=== PATIENT | male | born 1980 | race Caucasian/White ===

== ENCOUNTER 2018-11-26 07:54 | Emergency (ER) | payer BC, SELFPAY ==
[2018-11-26 08:02] VITALS: BP 125/81; PULSE 106; RESP 18; TEMP 36.4; O2SAT 96
--- NOTE | 2018-11-26 08:08 | W.ED.GENAD ---
Discharge Plan Disposition Patient Disposition: HOME Condition: Good Discharge Details Chief Complaint: GenMedical Clinical Impression: URI (upper respiratory infection), Mild reactive airways disease Primary Care Provider: Keanu Huang ED Provider: Grover Lane Home Meds and New Rx's Prescriptions: New prednisone 50 MG tablet 50 mg PO DAILY Qty: 5 RF: 0 albuterol sulfate 90 mcg/actuation HFA aerosol inhaler 2 puff IH Q6H PRN (Reason: shortness of breath or wheezing) Qty: 8 RF: 0 No Action allopurinol 100 mg tablet 100 mg PO DAILY Qty: 90 RF: 3 indomethacin 50 mg capsule 50 mg PO TID Qty: 30 RF: 1 sertraline 100 mg tablet 100 mg PO DAILY Qty: 90 RF: 3 nicotine [Nicoderm CQ] 21 mg/24 hr patch 24 hour 1 patch TD Q24H Qty: 14 RF: 0 nicotine [Nicoderm CQ] 14 mg/24 hr patch 24 hour 1 patch TD DAILY Qty: 14 RF: 0 nicotine [Nicoderm CQ] 7 mg/24 hr patch 24 hour 1 patch TD Q24H Qty: 14 RF: 0 nicotine 1 EACH patch 24 hour 14 mg Transdermal DAILY Qty: 14 RF: 0 Nicotine [Nicotine Patch] 1 EACH PATCH.DYSQ 1 ea Transdermal d Qty: 28 RF: 0 ibuprofen 600 mg tablet 600 mg PO Q6H PRN (Reason: Pain) Qty: 40 RF: 0 Discharge Instructions Instructions: Upper Respiratory Infection (ED), Reactive Airways Disease (ED) Additional Instructions: Please take the inhaler and steroids as directed. If you notice any worsening of your symptoms, or any new symptoms such as vomiting, diarrhea, fever, chills, shortness of breath, chest pain, numbness, weakness, or fainting , please return immediately to the emergency department for reevaluation. Please follow up with your primary care provider as soon as possible for reassessment and reevaluation. As always, it was a pleasure participating in your medical care today. Stand Alone Forms: Work Release Referrals: Keanu Huang [Primary Care Provider] - Medical Decision Making This is a 38-year-old male who presents with 4-5 days of cough, congestion, runny nose, aches, myalgias. Vital signs are stable and reassuring, no evidence of hypoxemia, tachypnea, fever, or respiratory distress. Lung sounds demonstrate mild wheezes, the patient does have a tobacco abuse history. No clinical evidence of meningitis or brock pneumonia. And concern for influenza as the patient has not gotten his influenza vaccine. With the patient's mild wheezes we will give a DuoNeb treatment, steroids and Toradol. Will assess for influenza. I feel the patient at this time is most likely suffering from a viral upper respiratory infection. We will hold off on radiographic imaging at this time with no evidence of hypoxemia, tachypnea, or concerning physical exam findings for pneumonia. A 38 5 AM Patient is feeling much better after breathing treatment. Lung sounds are notably improved. Still no evidence of consistent rhonchi or rales. Patient is influenza negative. I do feel that the patient has a mild viral upper respiratory infection causing worsening of his reactive airway disease. We will give albuterol and steroids for home use. I have instructed close follow-up with his PCP, we have also discussed the importance of return if he notices worsening of his symptoms. We discussed signs and symptoms concerning for pneumonia and other red flag I have extensively reviewed the treatment plan and discharge instructions with the patient. I have addressed all patient concerns at this time. The patient was made aware of what symptoms to monitor for that would warrant a return to the emergency department. Discussed the plan with the patient, they demonstrate verbal understanding and agreement with our assessment and plan at this time. HPI General Date/Time Provider Initiated Documentation: 11/26/18 07:57. HPI Narrative: This is a 38-year-old male with a past medical history of gout, tobacco use, who presents today for evaluation of cough, aches, chills, and fever for the last 4-5 days. Symptoms began last Saturday and his symptoms have gradually worsened. He now has a productive cough for the last 2-3 days with green sputum. He does admit to mild shortness of breath with his cough, but he denies any chest pain, pleuritic chest pain, arm neck or shoulder pain. He admits to generalized aches and pains throughout and feelings of malaise. He continues to smoke. He denies any hemoptysis. He does admit to very mild headache. The patient denies any headache red flags of worst headache of life, thunderclap headache, neck pain, fever, chills, concerning family history of polycystic kidney disease, Marfan syndrome, Renard-Danlos syndrome, abdominal aortic aneurysm, aortic dissection, or intracranial aneurysm. Denies PE risk factors such as recent long car rides, immobilization, recent surgery, prior history of DVT or PE, family history of PE or DVT, morbid obesity, exogenous estrogen, hemoptysis, history of cancer. The patient did not get his flu shot this year. He denies any other complaints at this time. He Related Data Home Medications Medication Instructions Recorded Confirmed nicotine 14 mg TRANSDERMAL DAILY #14 patch 03/26/18 10/24/18 ibuprofen 600 mg tablet 600 mg PO Q6H PRN #40 tab 10/17/18 11/26/18 allopurinol 100 mg tablet 100 mg PO DAILY #90 tab 10/24/18 11/26/18 indomethacin 50 mg capsule 50 mg PO TID #30 cap 10/24/18 10/24/18 nicotine 14 mg/24 hr daily 1 patch TD DAILY #14 each 10/24/18 10/24/18 transdermal patch nicotine 21 mg/24 hr daily 1 patch TD Q24H #14 each 10/24/18 10/24/18 transdermal patch nicotine 7 mg/24 hr daily 1 patch TD Q24H #14 each 10/24/18 10/24/18 transdermal patch sertraline 100 mg tablet 100 mg PO DAILY #90 tab-cap 10/24/18 11/26/18 albuterol sulfate 2 puff IH Q6H PRN #8 gm 11/26/18 prednisone 50 mg PO DAILY #5 tab 11/26/18 Previous Rx's Medication Instructions Recorded nicotine 14 mg TRANSDERMAL DAILY #14 patch 03/26/18 ibuprofen 600 mg tablet 600 mg PO Q6H PRN #40 tab 10/17/18 allopurinol 100 mg tablet 100 mg PO DAILY #90 tab 10/24/18 indomethacin 50 mg capsule 50 mg PO TID #30 cap 10/24/18 nicotine 14 mg/24 hr daily 1 patch TD DAILY #14 each 10/24/18 transdermal patch nicotine 21 mg/24 hr daily 1 patch TD Q24H #14 each 10/24/18 transdermal patch nicotine 7 mg/24 hr daily 1 patch TD Q24H #14 each 10/24/18 transdermal patch sertraline 100 mg tablet 100 mg PO DAILY #90 tab-cap 10/24/18 albuterol sulfate 2 puff IH Q6H PRN #8 gm 11/26/18 prednisone 50 mg PO DAILY #5 tab 11/26/18 Allergies Allergy/AdvReac Type Severity Reaction Status Date / Time poison joseph extract AdvReac Intermediate Skin Rash Unverified 11/26/18 08:11 General Stated Complaint: GenMedical NORMA: 3 Review of Systems Review of Systems All systems reviewed & are unremarkable except as noted in HPI and below PFSH Social History Smoking and Tabacco status: Current every day Pasive smoking exposure: Yes Exam Narrative Exam Narrative: 1.Const: Well-nourished, Well-developed, appearing stated age 2.Eyes: PERRL, no conjunctival injection, and symmetrical lids. 3.ENT: Atraumatic external nose and ears. Moist MM. Neck: Symmetric, trachea midline, No thyromegaly. Patient demonstrates good movement of cervical neck. There is no nuchal rigidity, no nuchal tenderness. Patient is able to flex the neck without any difficulty or significant pain. Negative Kernig's and Brudzinski sign. No significant erythema in the posterior oropharynx. 4.CVS: +S1/S2, No murmurs or gallops. Peripheral pulses 2+ and equal in all extremities. Brisk capillary refill in all extremities. 5.RESP: Unlabored respiratory effort. Reduced breath sounds throughout, mild wheezes in the bases. No rales or rhonchi. 6.GI: Soft, Nontender/Nondistended, No hepatosplenomegaly. No guarding or rebound. 7.MSK: Normocephalic/Atraumatic, Extremities w/o deformity or ttp No cyanosis or clubbing, Normal movement of all extremities 8.Skin: Warm, Dry. No rashes or lesions. 9.Neuro: humanities instructor II-XII grossly intact. Sensation grossly intact, no focal neurologic deficits. 10.Psych: (AAO) x3. Appropriate mood and affect Course Vital Signs Temperature 36.4 C L 11/26/18 08:02 Pulse 106 H 11/26/18 08:02 Respiratory Rate 18 11/26/18 08:02 Blood Pressure 125/81 11/26/18 08:02 Pulse Oximetry 96 11/26/18 08:02 Temperature 36.4 C L 11/26/18 08:02 Temperature Source Temporal Artery Scan 11/26/18 08:02 Pulse 106 H 11/26/18 08:02 Respiratory Rate 18 11/26/18 08:02 Blood Pressure 125/81 11/26/18 08:02 Blood Pressure Position Sitting 11/26/18 08:02 Pulse Oximetry 96 11/26/18 08:02 Oxygen Delivery Method Room Air 11/26/18 08:02 Oxygen Flow Rate 0 11/26/18 08:02 Pain Level 8 11/26/18 08:02 Lab/Test Results Lab/Test Results: 11/26/18 08:04 Nasopharynx Influenza Types A,B Antigen - Pending
[2018-11-26 08:15] VITALS: PULSE 106; RESP 18; RESP 4; O2SAT 96
[2018-11-26] MEDS: Albuterol/Ipratropium 3 ML UPD VIAL UPD (08:15)
[2018-11-26] MEDS: predniSONE 20 MG TAB 60 MG PO (08:15)
[2018-11-26] MEDS: Ketorolac 30 MG/ML VIAL IM (08:16)
[2018-11-26 08:21] VITALS: RESP 18
[2018-11-26 08:46] VITALS: BP 128/79; PULSE 104; RESP 18; O2SAT 95
== END 2018-11-26 08:50 | disposition home or self-care (01) ==
PROVIDERS: Emergency Provider Student in an Organized Health Care Education/Training Program; PCP Family Medicine
DX: J06.9 Acute upper respiratory infection, unspecified (principal); J45.909 Unspecified asthma, uncomplicated; F17.210 Nicotine dependence, cigarettes, uncomplicated
CPT/HCPCS: 87449; 94640; 96372; 99284; J1885; J7512; J7620

== ENCOUNTER 2019-03-05 14:07 | Emergency (ER) | payer OTHER, SELFPAY ==
[2019-03-05 14:09] VITALS: BP 155/99; PULSE 104; RESP 18; TEMP 36.7; O2SAT 97
--- NOTE | 2019-03-05 14:25 | W.ED.GENAD ---
Discharge Plan Disposition Patient Disposition: HOME Condition: Improving Discharge Details Chief Complaint: GenMedical Clinical Impression: Infected insect bite Primary Care Provider: Keanu Huang ED Provider: Singh Woodard Home Meds and New Rx's Prescriptions: New doxycycline hyclate 100 mg capsule 100 mg PO BID 10 Days Qty: 20 RF: 0 Continued sertraline 100 mg tablet 100 mg PO DAILY Qty: 90 RF: 3 nicotine [Nicoderm CQ] 21 mg/24 hr patch 24 hour 1 patch TD Q24H Qty: 14 RF: 0 nicotine [Nicoderm CQ] 14 mg/24 hr patch 24 hour 1 patch TD DAILY Qty: 14 RF: 0 nicotine [Nicoderm CQ] 7 mg/24 hr patch 24 hour 1 patch TD Q24H Qty: 14 RF: 0 nicotine 1 EACH patch 24 hour 14 mg Transdermal DAILY Qty: 14 RF: 0 Nicotine [Nicotine Patch] 1 EACH PATCH.DYSQ 1 ea Transdermal d Qty: 28 RF: 0 ibuprofen 600 mg tablet 600 mg PO Q6H PRN (Reason: Pain) Qty: 40 RF: 0 albuterol sulfate 90 mcg/actuation HFA aerosol inhaler 2 puff IH Q6H PRN (Reason: shortness of breath or wheezing) Qty: 8 RF: 0 allopurinol 100 mg Tablet 100 mg PO BID RF: 0 Discharge Instructions Additional Instructions: Please apply moist heat or warm compress to area to increase speed of healing. May use Tylenol if needed for pain. Take doxycycline as prescribed for its entire course. Return if you have increased swelling, develop drainage or a fever, or any other acute concerns. Medical Decision Making 38-year-old male was working in [employer] yesterday and removed 3 tick ticks during the day. Last night he noticed left anterior thigh area of insect bite without persistent tach. Today with her surrounding erythema. Exam is consistent with a mild cellulitis surrounding central area of probable envenomation. As he had tick exposure, must consider exposure to Lyme disease and therefore we will place him on a course of doxycycline. He understands that he will have increased sensitivity to sun exposure, he understands return precautions. HPI General Mode of arrival: ambulatory. Date/Time Provider Initiated Documentation: 03/05/19 14:15. Limitations to Documentation: no limitations. Information obtained by: patient. History of Present Illness 38 year old M presents to the emergency department with the chief complaint of Left thigh insect bite, question tick, described as mild, Quality is described as dull and constant, and is localized to the left and lower extremity. Patient reports no radiation. Patient started experiencing this day(s) and it has been constant. No relieving factors improve symptom(s), No exacerbating factors reported . Patient notes no other symptoms.; denies fever/chills. Patient did receive the following treatments prior to arrival, none Related Data Home Medications Medication Instructions Recorded Confirmed nicotine 14 mg TRANSDERMAL DAILY #14 patch 03/26/18 03/05/19 ibuprofen 600 mg tablet 600 mg PO Q6H PRN #40 tab 10/17/18 03/05/19 nicotine 14 mg/24 hr daily 1 patch TD DAILY #14 each 10/24/18 03/05/19 transdermal patch nicotine 21 mg/24 hr daily 1 patch TD Q24H #14 each 10/24/18 03/05/19 transdermal patch nicotine 7 mg/24 hr daily 1 patch TD Q24H #14 each 10/24/18 03/05/19 transdermal patch sertraline 100 mg tablet 100 mg PO DAILY #90 tab-cap 10/24/18 03/05/19 albuterol sulfate 2 puff IH Q6H PRN #8 gm 11/26/18 03/05/19 allopurinol 100 mg PO BID 03/05/19 03/05/19 doxycycline hyclate 100 mg PO BID 10 Days #20 cap 03/05/19 Previous Rx's Medication Instructions Recorded nicotine 14 mg TRANSDERMAL DAILY #14 patch 03/26/18 ibuprofen 600 mg tablet 600 mg PO Q6H PRN #40 tab 10/17/18 nicotine 14 mg/24 hr daily 1 patch TD DAILY #14 each 10/24/18 transdermal patch nicotine 21 mg/24 hr daily 1 patch TD Q24H #14 each 10/24/18 transdermal patch nicotine 7 mg/24 hr daily 1 patch TD Q24H #14 each 10/24/18 transdermal patch sertraline 100 mg tablet 100 mg PO DAILY #90 tab-cap 10/24/18 albuterol sulfate 2 puff IH Q6H PRN #8 gm 11/26/18 doxycycline hyclate 100 mg PO BID 10 Days #20 cap 03/05/19 Allergies Allergy/AdvReac Type Severity Reaction Status Date / Time poison joseph extract AdvReac Intermediate Skin Rash Unverified 03/05/19 14:12 General Stated Complaint: GenMedical NORMA: 4 Review of Systems Review of Systems 6 systems reviewed and otherwise negative [facility] Social History Smoking/Tobacco Use Status: Current every day Drug use: Never Do you feel safe in your relationship?: Yes Exam Narrative Exam Narrative: GEN: awake, alert, oriented 3. Pleasant, well groomed, interactive. HEAD: Normocephalic, atraumatic EXT: Full ROM, no edema, left anterior lateral thigh with approximately 5 cm diameter raised erythematous area with central area of scab Neuro: Grossly normal neurologic exam, conversant, interactive. Psych: Speech fluent, thoughts congruent, affect normal Course Vital Signs Temperature 36.7 C 03/05/19 14:09 Pulse 104 H 03/05/19 14:09 Respiratory Rate 18 03/05/19 14:09 Blood Pressure 155/99 H 03/05/19 14:09 Pulse Oximetry 97 03/05/19 14:09 Temperature 36.7 C 03/05/19 14:09 Temperature Source Skin 03/05/19 14:09 Pulse 104 H 03/05/19 14:09 Respiratory Rate 18 03/05/19 14:09 Blood Pressure 155/99 H 03/05/19 14:09 Pulse Oximetry 97 03/05/19 14:09 Oxygen Delivery Method Room Air 03/05/19 14:09 Oxygen Flow Rate 0 03/05/19 14:09
--- NOTE | 2019-03-05 14:29 | ED.GENADUL_ITS ---
Discharge Plan Disposition Patient Disposition: HOME Condition: Improving Discharge Details Chief Complaint: GenMedical Clinical Impression: Infected insect bite Primary Care Provider: Keanu Huang ED Provider: Singh Woodard Home Meds and New Rx's Prescriptions: New doxycycline hyclate 100 mg capsule 100 mg PO BID 10 Days Qty: 20 RF: 0 Continued sertraline 100 mg tablet 100 mg PO DAILY Qty: 90 RF: 3 nicotine [Nicoderm CQ] 21 mg/24 hr patch 24 hour 1 patch TD Q24H Qty: 14 RF: 0 nicotine [Nicoderm CQ] 14 mg/24 hr patch 24 hour 1 patch TD DAILY Qty: 14 RF: 0 nicotine [Nicoderm CQ] 7 mg/24 hr patch 24 hour 1 patch TD Q24H Qty: 14 RF: 0 nicotine 1 EACH patch 24 hour 14 mg Transdermal DAILY Qty: 14 RF: 0 Nicotine [Nicotine Patch] 1 EACH PATCH.DYSQ 1 ea Transdermal d Qty: 28 RF: 0 ibuprofen 600 mg tablet 600 mg PO Q6H PRN (Reason: Pain) Qty: 40 RF: 0 albuterol sulfate 90 mcg/actuation HFA aerosol inhaler 2 puff IH Q6H PRN (Reason: shortness of breath or wheezing) Qty: 8 RF: 0 allopurinol 100 mg Tablet 100 mg PO BID RF: 0 Discharge Instructions Additional Instructions: Please apply moist heat or warm compress to area to increase speed of healing. May use Tylenol if needed for pain. Take doxycycline as prescribed for its entire course. Return if you have increased swelling, develop drainage or a fever, or any other acute concerns. Medical Decision Making 38-year-old male was working in [employer] yesterday and removed 3 tick ticks during the day. Last night he noticed left anterior thigh area of insect bite without persistent tach. Today with her surrounding erythema. Exam is consistent with a mild cellulitis surrounding central area of probable envenomation. As he had tick exposure, must consider exposure to Lyme disease and therefore we will place him on a course of doxycycline. He understands that he will have increased sensitivity to sun exposure, he understands return precautions. HPI General Mode of arrival: ambulatory . Date/Time Provider Initiated Documentation: 03/05/19 14:15 . Limitations to Documentation: no limitations . Information obtained by: patient . History of Present Illness 38 year old M presents to the emergency department with the chief complaint of Left thigh insect bite, question tick, described as mild, Quality is described as dull and constant, and is localized to the left and lower extremity. Patient reports no radiation. Patient started experiencing this day(s) and it has been constant. No relieving factors improve symptom(s), No exacerbating factors reported . Patient notes no other symptoms.; denies fever/chills. Patient did receive the following treatments prior to arrival, none Related Data Home Medications Medication Instructions Recorded Confirmed nicotine 14 mg TRANSDERMAL DAILY #14 patch 03/26/18 03/05/19 ibuprofen 600 mg tablet 600 mg PO Q6H PRN #40 tab 10/17/18 03/05/19 nicotine 14 mg/24 hr daily 1 patch TD DAILY #14 each 10/24/18 03/05/19 transdermal patch nicotine 21 mg/24 hr daily 1 patch TD Q24H #14 each 10/24/18 03/05/19 transdermal patch nicotine 7 mg/24 hr daily 1 patch TD Q24H #14 each 10/24/18 03/05/19 transdermal patch sertraline 100 mg tablet 100 mg PO DAILY #90 tab-cap 10/24/18 03/05/19 albuterol sulfate 2 puff IH Q6H PRN #8 gm 11/26/18 03/05/19 allopurinol 100 mg PO BID 03/05/19 03/05/19 doxycycline hyclate 100 mg PO BID 10 Days #20 cap 03/05/19 Previous Rx's Medication Instructions Recorded nicotine 14 mg TRANSDERMAL DAILY #14 patch 03/26/18 ibuprofen 600 mg tablet 600 mg PO Q6H PRN #40 tab 10/17/18 nicotine 14 mg/24 hr daily 1 patch TD DAILY #14 each 10/24/18 transdermal patch nicotine 21 mg/24 hr daily 1 patch TD Q24H #14 each 10/24/18 transdermal patch nicotine 7 mg/24 hr daily 1 patch TD Q24H #14 each 10/24/18 transdermal patch sertraline 100 mg tablet 100 mg PO DAILY #90 tab-cap 10/24/18 albuterol sulfate 2 puff IH Q6H PRN #8 gm 11/26/18 doxycycline hyclate 100 mg PO BID 10 Days #20 cap 03/05/19 Allergies Allergy/AdvReac Type Severity Reaction Status Date / Time poison joseph extract AdvReac Intermediate Skin Rash Unverified 03/05/19 14:12 General Stated Complaint: GenMedical NORMA: 4 Review of Systems Review of Systems 6 systems reviewed and otherwise negative [facility] Social History Smoking/Tobacco Use Status: Current every day Drug use: Never Do you feel safe in your relationship?: Yes Exam Narrative Exam Narrative: GEN: awake, alert, oriented 3. Pleasant, well groomed, interactive. HEAD: Normocephalic, atraumatic EXT: Full ROM, no edema, left anterior lateral thigh with approximately 5 cm diameter raised erythematous area with central area of scab Neuro: Grossly normal neurologic exam, conversant, interactive. Psych: Speech fluent, thoughts congruent, affect normal Course Vital Signs Temperature 36.7 C 03/05/19 14:09 Pulse 104 H 03/05/19 14:09 Respiratory Rate 18 03/05/19 14:09 Blood Pressure 155/99 H 03/05/19 14:09 Pulse Oximetry 97 03/05/19 14:09 Temperature 36.7 C 03/05/19 14:09 Temperature Source Skin 03/05/19 14:09 Pulse 104 H 03/05/19 14:09 Respiratory Rate 18 03/05/19 14:09 Blood Pressure 155/99 H 03/05/19 14:09 Pulse Oximetry 97 03/05/19 14:09 Oxygen Delivery Method Room Air 03/05/19 14:09 Oxygen Flow Rate 0 03/05/19 14:09
== END 2019-03-05 14:40 | disposition home or self-care (01) ==
PROVIDERS: Emergency Provider Emergency Medicine; PCP Family Medicine
DX: S70.362A Insect bite (nonvenomous), left thigh, initial encounter (principal); L03.116 Cellulitis of left lower limb; W57.XXXA Bitten or stung by nonvenomous insect and other nonvenomous arthropods, initial encounter; F17.210 Nicotine dependence, cigarettes, uncomplicated
CPT/HCPCS: 99283

== ENCOUNTER 2020-03-03 03:38 | Outpatient (CLI) | payer BC, SELFPAY ==
[2020-03-03 13:52] LABS: Calculated LDL 129 mg/dL (<100); Cholesterol 217 mg/dL (<200); Glucose 145 mg/dL (74-106); HDL Cholesterol 34 mg/dL (40-60); Triglyceride 271 mg/dL (<150)
[2020-03-03 14:05] LABS: Uric Acid 8.5 mg/dL (3.5-7.2)
== END 2020-03-03 03:58 ==
PROVIDERS: PCP Family Medicine; Visit Provider Family Medicine
DX: E78.5 Hyperlipidemia, unspecified (principal); R73.9 Hyperglycemia, unspecified; M10.9 Gout, unspecified
CPT/HCPCS: 36415; 80061; 82947; 84550

== ENCOUNTER 2021-07-24 15:51 | Emergency (ER) | payer SELFPAY ==
[2021-07-24 15:56] VITALS: BP 153/102; PULSE 110; RESP 20; O2SAT 98
--- NOTE | 2021-07-24 16:00 | DI.RAD_ITS ---
Exam(s) XR ANKLE RT COMPLETE EXAM: XR ANKLE RT COMPLETE CLINICAL HISTORY: fall. TECHNIQUE: 2D digital imaging was performed of the right ankle. Three images were obtained. AP, la teral and oblique views were obtained. COMPARISON: No exams were available for comparison FINDINGS: BONES: No acute fracture of the right ankle is present. No bony destructive lesion is seen. Fracture s of the right foot are described on the x-ray of the right foot from the same day. JOINTS: The ankle mortise is normally aligned. SOFT TISSUE: Normal. IMPRESSION: 1. Unremarkable radiographs of the right ankle. 2. Please review the report for the same day x-ray of the right foot for complete details of the [place] injury. DATA REPOSITORY: RADIATION DOSE DELIVERED:
--- NOTE | 2021-07-24 16:00 | DI.RAD_ITS ---
Exam(s) XR KNEE RT 3V AP,LAT,MANOLO EXAM: XR KNEE RT 3V AP,LAT,MANOLO CLINICAL HISTORY: proximal fibula pain. TECHNIQUE: 2D digital imaging was performed of the right knee. Three views obtained. AP, AP tunnel and lateral views were obtained. COMPARISON: CR RIGHT KNEE 3 VIEWS from 06/15/2017 FINDINGS: BONES: No acute fracture is present. No bony destructive lesion is seen. JOINTS: The knee is normally aligned. No joint effusion is seen. SOFT TISSUE: Normal. IMPRESSION: Unremarkable radiographs of the right knee. DATA REPOSITORY: RADIATION DOSE DELIVERED:
--- NOTE | 2021-07-24 16:00 | DI.RAD_ITS ---
Exam(s) XR FOOT RT COMPLETE EXAM: XR FOOT RT COMPLETE CLINICAL HISTORY: fall. TECHNIQUE: 2D digital imaging was performed of the right foot. Three images were obtained. AP, obl ique and lateral views were obtained. COMPARISON: No exams were available for comparison FINDINGS: BONES: There is an acute mildly displaced and impacted fracture involving the proximal metaphysis of the right 4th metacarpal. There are tiny osseous densities interposed between the lateral cuneiform and the cuboid suggestive of acute fracture fragments. The site of origin is indeterminate. There a lso appears to be a deformity at the base of the 2nd metatarsal suspicious for fracture. There is wi dening between the bases of the 1st and 2nd metatarsal suspicious for Lisfranc injury. No bony destr uctive lesion is seen. JOINTS: No dislocation present. SOFT TISSUE: There is soft tissue swelling of the foot. IMPRESSION: 1. Mildly displaced and impacted fracture involving the proximal metaphysis of the right 4th metacarp al. 2. Osseous fragments adjacent to the lateral cuneiform suspicious for acute fracture fragment. 3. Widening between the bases of the 1st and 2nd metatarsal suspicious for Lisfranc injury. 4. Soft tissue swelling of the foot. 5. Question of a fracture involving the base of the 2nd metatarsal. DATA REPOSITORY: RADIATION DOSE DELIVERED:
--- NOTE | 2021-07-24 16:45 | DI.CT_ITS ---
Exam(s) CT LOWER EXTREMITY RT WO EXAM: CT LOWER EXTREMITY RT WO CLINICAL HISTORY: further evaluation of Lisfranc. TECHNIQUE: Imaging Protocol: Axial computed tomography images with coronal and sagittal reformatted images were created and reviewed. COMPARISON: CR,XR XR FOOT RT COMPLETE from 07/24/2021 CR,XR XR FOOT RT COMPLETE from 07/24/2021 FINDINGS: Bones: There is a small acute mildly comminuted fracture at the lateral aspect of the cuboid. There is a mildly comminuted fracture involving the lateral aspect of the lateral cuneiform. There are fe w tiny densities adjacent to the plantar lateral aspect of the middle cuneiform suspicious for small avulsed fracture fragments. There is a tiny osseous density at the anterior and lateral aspect of me dial cuneiform which may represent a small avulsed fracture fragment. There is a comminuted mildly d isplaced fracture involving the base of the 2nd metatarsal. There is widening of the distance betwee n the 1st and 2nd metatarsals consistent with a Lisfranc injury. There is a displaced fracture invol ving the base of the 3rd metatarsal. There is a comminuted mildly displaced fracture involving the b ase of the 4th metatarsal. No cellulitic or osteomyelitic changes are identified. There is no evide nce of joint space narrowing or cystic degeneration seen. No lytic or sclerotic lesions are identifie d. Soft Tissues: There is soft tissue swelling of the forefoot. IMPRESSION: 1. Findings consistent with a Lisfranc fracture dislocation. 2. Fractures involving the bases of the 2nd, 3rd and 4th metatarsals. 3. Findings suspicious for fractures involving the middle and lateral cuneiform is in the cuboid. 4. Soft tissue edema in the foot. RADIATION DOSE DELIVERED: 293.5mGy.cm Total DLP 293.5mGy.cm Total DLP DATA REPOSITORY: All CT scans at this facility are submitted to the National Radiology Data Registry (NRDR) Dose Index Registry (DIR) with the [employer] (ACR). RADIATION OPTIMIZATION: All CT scans at this facility use at least one of these dose optimization te chniques: automated exposure control; mA and/or kV adjustment per patient size (includes targeted exa ms where dose is matched to clinical indication); or iterative reconstruction.
[2021-07-24] MEDS: Ibuprofen 600 MG TAB PO (16:46)
[2021-07-24] MEDS: Acetaminophen 500 MG TAB 1000 MG PO (16:46)
--- NOTE | 2021-07-24 16:57 | W.ED.GENAD ---
Discharge Plan Disposition Patient Disposition: HOME Condition: Stable Discharge Details Clinical Impression: Lisfranc fracture, Multiple fractures of foot Primary Care Provider: Keanu Huang ED Provider: Trudy Silva Home Meds and New Rx's Prescriptions: Continued allopurinol 100 mg tablet 200 mg PO DAILY PRN (Reason: gout prophylaxis) Qty: 60 RF: 5 sertraline 100 mg tablet 100 mg PO DAILY Qty: 90 RF: 3 ibuprofen 600 mg tablet 600 mg PO Q6H PRN (Reason: Pain) Qty: 60 RF: 1 indomethacin 50 mg capsule 50 mg PO TID PRN (Reason: gout) Qty: 30 RF: 1 Discharge Instructions Instructions: Foot Fracture in Adults (ED) Additional Instructions: Your imaging is concerning for fractures to 3 bones in your foot. This injury is called a Lisfranc fracture. This will likely need surgical intervention. Please call orthopedics tomorrow at [facility] to arrange for follow-up with retail operations specialist. [phone]. Please leave splint in place until reevaluated by orthopedics. Please encourage rest, ice, elevation. You may use Tylenol and ibuprofen as needed for discomfort. Please remain nonweightbearing and use crutches to help get around. If develop any new or worsening symptoms please seek care urgently once again. Referrals: Kip Carranza [ NON-[facility] STAFF PHYSICIAN] - Discharge Data Discharge Date/Time-TO BE ENTERED AT DEPARTURE: 07/24/21 19:20 Medical Decision Making Patient is a pleasant 41-year-old gentleman presented with chief complaint of right foot and ankle pain after fall off a ladder. He reports that he directly 10 feet up on a ladder when the ladder kicked out and he rode the ladder down to the ground. His body was on top of the ladder but his right foot got caught under the ladder. He denies drinking. No loss of conscious. Denies pain in his neck, back. No incontinence. He denies any abdominal discomfort. He did initially was able to ambulate with secondary to pain in the foot and ankle had has been nonweightbearing when coming in to the hospital today. On exam, patient appears nontoxic. He appears comfortable. He is swelling to the dorsal aspect of the right foot. Pain over the midfoot as well as the metatarsal. Pain over the lateral malleolus. No pain medially. Achilles is intact and nontender. No pain over the calcaneus. Patient is able to move all of his toes. States that he does feel tingly. Intact capillary refill, 2+ distal pulses. He does have some discomfort over the proximal fibula. No pain on palpation of the patella knee joint. Good range of motion of the knee. No effusion. Plan to image the proximal fibula, ankle and foot. He does have midfoot tenderness, will obtain a weighted view. Will give Tylenol and ibuprofen to help with pain. Exam of the patient head, chest, pelvis, back were all unremarkable. Full range of motion of the spine with no midline tenderness or evidence to suggest any type of compression fracture. He is known saddle paresthesias. Good strength in all extremities. No break in the skin. I was contacted by orthopedic surgeon who looked at the initial x-rays. He is concerned for a Lisfranc fracture. Advised that patient be placed in a bulky Goldman dressing, nonweightbearing and follow-up with retail operations specialist. Patient is agreeable to referral to [facility]. He also asked that I obtain a CT that she will do prior to splinting and discharging patient. 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 On AP view, there is lateral positioning of the 2nd metatarsal in reference to the intermediate cuneiform bone. The talotibial and talofibular joints appear unremarkable. There is very minor hypertrophic change seen along the tip of the medial malleolus. Soft tissues: Soft tissue edema noted within the forefoot. IMPRESSION: 1. No acute osseous injury seen within the ankle joint. 2. Fracture of the 4th metatarsal at the junction of the base and shaft. Recommend orthopedic referral. 3. Lateral subluxation of the 2nd metatarsal in relationship to the intermediate cuneiform consistent with LisFranc injury. Recommend CT foot to best evaluate. 4. Soft tissue edema within the forefoot. FINDINGS: Bones/joints: No acute osseous injury. There is very slight, if any, narrowing within the medial compartment of the right tibiofemoral joint with prominence of the right medial tibial plateau spine. The right patellofemoral joint is grossly normal in appearance. Soft tissues: No soft tissue edema or suprapatellar effusion seen. IMPRESSION: 1. No acute osseous injury. If trauma was very recent and should patient's symptoms persist, recommend follow-up imaging in 7-10 days to evaluate for possible occult fracture. 2. Minor degenerative change to the right tibiofemoral joint. Discussed these findings with the patient. Discussed application of bulky Goldman splint. I encouraged rest, ice, elevation. Tylenol and/or ibuprofen as needed for discomfort. Will give crutches to help with ambulation this patient is to remain nonweightbearing. Referral for specialist to [facility] was s probably ent. I did advise that he call tomorrow to schedule follow-up appointment. Bulky Goldman applied by myself. Sensation, capillary refill and mobility intact after application of the splint. Patient I discussed return precautions. We discussed activities that he should avoid. All his questions and concerns were addressed and he is agreement this plan. Patient can be reached at [phone] HPI General Mode of arrival: wheelchair. Date/Time Provider Initiated Documentation: 07/24/21 15:54. Limitations to Documentation: no limitations. Information obtained by: patient and RN notes reviewed. History of Present Illness 41 year old M presents to the emergency department with the chief complaint of right foot/ankle pain, described as severe, with intensity rated at 9. Quality is described as aching, and is localized to the right and lower extremity. Patient reports no radiation. Patient started experiencing this minute(s) and it has been constant. Immobilization improves symptom(s), Movement worsens symptoms . Patient notes no other symptoms.. Patient did receive the following treatments prior to arrival, none Related Data Home Medications Medication Instructions Recorded Confirmed allopurinol 100 mg tablet 200 mg PO DAILY PRN #60 tab 01/18/21 07/24/21 ibuprofen 600 mg tablet 600 mg PO Q6H PRN #60 tab 01/18/21 07/24/21 indomethacin 50 mg capsule 50 mg PO TID PRN #30 cap 01/18/21 07/24/21 sertraline 100 mg tablet 100 mg PO DAILY #90 tab-cap 01/18/21 07/24/21 Previous Rx's Medication Instructions Recorded allopurinol 100 mg tablet 200 mg PO DAILY PRN #60 tab 01/18/21 ibuprofen 600 mg tablet 600 mg PO Q6H PRN #60 tab 01/18/21 indomethacin 50 mg capsule 50 mg PO TID PRN #30 cap 01/18/21 sertraline 100 mg tablet 100 mg PO DAILY #90 tab-cap 01/18/21 Allergies Allergy/AdvReac Type Severity Reaction Status Date / Time poison joseph extract AdvReac Intermediate Skin Rash Verified 01/18/21 08:20 General Stated Complaint: Orthopedic NORMA: 3 Review of Systems Constitutional Constitutional: Reports as per HPI, Denies chills, Denies fever(s), Denies headache(s) and Denies weakness ENT Ears, Nose, Mouth, and Throat: Denies headache(s) and Denies neck pain Cardiovascular Cardiovascular: Reports as per HPI Respiratory Respiratory: Reports as per HPI, Denies cough and Denies pain on inspiration Gastrointestinal Gastrointestinal: Denies abdominal pain, Denies nausea and Denies vomiting Musculoskeletal Musculoskeletal: Reports as per HPI, Denies back pain, Denies deformity, Denies neck pain and Denies tingling Integumentary/Breasts Skin/Breast: Reports as per HPI, Denies rash and Denies wounds Neurologic Neurologic: Reports as per HPI, Denies headache(s), Denies tingling, Denies paresthesias and Denies weakness [facility] Medical History (Updated 07/24/21 @ 18:13 by LARRY Ward) Glucose intolerance Gout Overweight Family History (Updated 01/18/21 @ 13:51 by Tamra De La Cruz) Mother No problems noted. Father No problems noted. Social History (Updated 01/18/21 @ 13:49 by Tamra De La Cruz) Smoking/Tobacco Use Status: Current-Occasional Tobacco Type: cigarettes Second Hand Exposure: Yes Smoking risk assessment performed?: Yes Alcohol Intake: current Alcohol Intake frequency: a few times a month Drug use: Occasionally Substance use type: marijuana Household members: spouse and children Communication Needs: None Pets and animals: Yes Pets and animals: horse(s) and other Details: Chickens What is your relationship status?: How often do you talk on the phone with friends or family?: three or more times per week How often do you get together with friends or relatives?: once per week How often do you attend baptist or caodaism services?: 4 or more times per year Do you belong to any clubs or organized social groups?: no Panel score (0-1 are the most socially isolated patients): 3 What type of physical activity do you participate in: walking Duration: 15-30 minutes/day Frequency: 3-4 times per week Ashleigh/Judaism: Pentecostalism Seatbelt use: always Helmet use: Yes Helmet use: always Drive intox or ride w/intox regional tanker truck driver: No Do you feel safe at home: Yes Do you feel safe in your relationship?: Yes Exam Const General: cooperative, healthy appearing, comfortable, no acute distress, well developed and well groomed Nutritional Appearance: average body habitus and well nourished Orientation: alert and awake [facility] Head: normal to inspection, no palpable skull fracture, normocephalic and atraumatic Face and sinus: normal facial exam Neck Neck: normal visual inspection and full ROM Chest Chest: normal inspection of the chest, normal palpation of entire chest wall, no crepitus and no localized rib tenderness Resp Effort & Inspection: normal respiratory effort, able to speak in complete sentences and no respiratory distress Cardio Rate: regular rate Rhythm: regular rhythm GI Inspection: normal to inspection Palpation: soft and nontender Back/Spine/Pelvis Back: no CVA tenderness Cervical Spine: normal cervical lordosis, cervical ROM normal, No cervical spinal tenderness and No step off deformity Thoracic/Lumbar Spine: thoracic and lumbar spine normal to inspection, No paraspinal tenderness, No thoracic spinal tenderness and No lumbar spinal tenderness Pelvis: no pain with anterior-posterior compression and no pain with lateral compression Skin General skin exam: no rashes or lesions noted Lesions: no lesions Rashes: no rashes Trauma: no lacerations or abrasions Neuro General: patient alert and patient awake Cognition: normal cognition Speech: speech normal Gait: normal gait Motor: muscle tone normal throughout Sensory Exam: no sensory deficits noted Extrem Ankle/foot/toe images: 1. Area of swelling maximal tenderness. No palpable deformity. 2+ distal pulses. Intact capillary refill. Able to move his toes well. Sensation is intact. Does have some discomfort over the proximal fifth metatarsal. Pain elicited with palpation of the lateral malleolus. Minor discomfort over the ATFL. Achilles intact and nontender, no pain over the calcaneus. He has no pain on palpation of the medial aspect of the ankle. He does have some discomfort over the proximal fibula. No pain elsewhere about the knee or with range of motion. Psych Appearance: grossly normal and well kempt Mental Status: mental status grossly normal Speech and Movement: speech and movement normal Course Vital Signs Vital signs: Vital Signs Pulse 110 H 07/24/21 15:56 Respiratory Rate 20 07/24/21 15:56 Blood Pressure 153/102 H 07/24/21 15:56 Pulse Oximetry 98 07/24/21 15:56 Pulse 110 H 07/24/21 15:56 Respiratory Rate 20 07/24/21 15:56 Blood Pressure 153/102 H 07/24/21 15:56 Blood Pressure Position Sitting 07/24/21 15:56 Pulse Oximetry 98 07/24/21 15:56 Oxygen Delivery Method Room Air 07/24/21 15:56 Oxygen Flow Rate 0 07/24/21 15:56 Pain Level 9 07/24/21 15:56
--- NOTE | 2021-07-24 17:04 | NUR.NOTE ---
REFERRAL SENT TO CM FOR FOLLOW UP WITH FOOT SPECIALUST AT [facility]
--- NOTE | 2021-07-24 17:10 | DI.VRAD_ITS ---
PROCEDURE INFORMATION: Exam: XR Right Knee Exam date and time: 07/24/2021 4:13 PM Age: 41 years old Clinical indication: Injury or trauma; Blunt trauma; Knee; Right; Injury details: Fall 8feet from ladder TECHNIQUE: Imaging protocol: XR Right knee. Views: 3 views. COMPARISON: CR RIGHT KNEE 3 VIEWS 06/15/2017 10:16 AM FINDINGS: Bones/joints: No acute osseous injury. There is very slight, if any, narrowing within the medial compartment of the right tibiofemoral joint with prominence of the right medial tibial plateau spine. The right patellofemoral joint is grossly normal in appearance. Soft tissues: No soft tissue edema or suprapatellar effusion seen. IMPRESSION: 1. No acute osseous injury. If trauma was very recent and should patient's symptoms persist, recommend follow-up imaging in 7-10 days to evaluate for possible occult fracture. 2. Minor degenerative change to the right tibiofemoral joint. Dictated and Authenticated by: Rufus Lopez MD. Ordering:MARLO Yates MD
--- NOTE | 2021-07-24 17:23 | DI.VRAD_ITS ---
PROCEDURE INFORMATION: Exam: XR Right Foot Exam date and time: 07/24/2021 4:13 PM Age: 41 years old Clinical indication: Injury or trauma; Blunt trauma; Foot; Right; Injury details: Fall 8 feet from ladder TECHNIQUE: Imaging protocol: XR Right foot. Views: 3 or more views. COMPARISON: CR RIGHT KNEE 3 VIEWS 06/15/2017 10:16 AM FINDINGS: Bones/joints: There is a mildly displaced fracture at the base of the 4th metatarsal bone at the junction of the base and shaft, best seen on oblique view. Also seen on this view is a 4 mm ossific density adjacent to the distal lateral cuboid. There may be very slight lateral displacement of the 2nd metatarsal in reference to the intermediate cuneiform bone as seen on AP view. Soft tissues: There is soft tissue edema within the forefoot. IMPRESSION: 1. Mildly displaced fracture at the base of the 4th metatarsal bone at the junction of the shaft and base. Recommend orthopedic referral. 2. Possible fracture along the distal lateral of the cuboid versus, less likely, tiny adjacent ossicle. Recommend CT of the foot to best evaluate. 3. Suggestion of slight lateral displacement of the 2nd metatarsal in reference to the intermediate cuneiform bone concerning for possible LisFranc injury which can be best evaluated with above recommended CT. 4. Soft tissue edema within the forefoot. Dictated and Authenticated by: Rufus Lopez MD. Ordering:MARLO Yates MD
[2021-07-24 17:24] LABS: Source Nasal/Nares
--- NOTE | 2021-07-24 17:35 | DI.VRAD_ITS ---
PROCEDURE INFORMATION: Exam: XR Right Ankle Exam date and time: 07/24/2021 4:02 PM Age: 41 years old Clinical indication: Injury or trauma; Fall; Blunt trauma; Ankle; Right TECHNIQUE: Imaging protocol: XR Right ankle. Views: 3 or more views. 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 On AP view, there is lateral positioning of the 2nd metatarsal in reference to the intermediate cuneiform bone. The talotibial and talofibular joints appear unremarkable. There is very minor hypertrophic change seen along the tip of the medial malleolus. Soft tissues: Soft tissue edema noted within the forefoot. IMPRESSION: 1. No acute osseous injury seen within the ankle joint. 2. Fracture of the 4th metatarsal at the junction of the base and shaft. Recommend orthopedic referral. 3. Lateral subluxation of the 2nd metatarsal in relationship to the intermediate cuneiform consistent with LisFranc injury. Recommend CT foot to best evaluate. 4. Soft tissue edema within the forefoot. Dictated and Authenticated by: Rufus Lopez MD. Ordering:LUH Presley MD
[2021-07-24 18:20] LABS: COVID-19 PCR Negative (Negative)
--- NOTE | 2021-07-24 18:57 | DI.VRAD_ITS ---
PROCEDURE INFORMATION: Exam: CT Right Lower Extremity Without Contrast Exam date and time: 07/24/2021 4:58 PM Age: 41 years old Clinical indication: Screening exam; Further eval of lisfranc; Patient HX: Further evaluation of lisfranc TECHNIQUE: Imaging protocol: CT of the Right lower extremity without contrast was performed. COMPARISON: CR XR ANKLE RT COMPLETE 07/24/2021 4:37 PM FINDINGS: Bones/joints: There is a LisFranc fracture within the base of the 2nd metatarsal bone, series 2, image 97 with lateral subluxation of this bone in relation to the intermediate cuneiform bone, series 2, image 93. There is a small fracture along the medial base of the 3rd metatarsal bone, series 2, image 104 with again seen fracture at the base of the 4th metatarsal bone, series 2, image 104. Along the lateral distal cuboid is a 5 mm ossific density, series 2, image 103. There is a small 6 mm ossific density adjacent to the lateral cuneiform bone, series 2, image 96. Soft tissues: There significant soft tissue edema within the predominantly within the mid foot and forefoot. IMPRESSION: 1. Lisfranc fracture/dislocation. Again recommend orthopedic/podiatry referral. 2. Fractures within the base of the 3rd and 4th metatarsal bones. 3. Ossific densities adjacent to the distal lateral cuboid and lateral cuneiform concerning for additional tiny fractures versus degenerative change. 4. Significant edema within the midfoot and forefoot. Dictated and Authenticated by: Rufus Lopez MD. Ordering:MARLO Yates MD
[2021-07-24 19:18] VITALS: BP 136/87; PULSE 86; RESP 18; O2SAT 97
--- NOTE | 2021-07-26 10:39 | CMPROGNOTE_ITS ---
- If Service Date Differs Date of service: 07/26/21 Time of Service: 10:39 Care Management Progress Note Susanna is seen in the ED for multiple fractures of his foot. At the request of ED provider, CM coordinates a referral to [facility] to assist Susanna in obtaining an appointment for evaluation and treatment.
--- NOTE | 2021-07-31 11:00 | NUR.NOTE ---
letter sent to pt that covid test was negative.Nursing Note:
== END 2021-07-24 19:20 | disposition home or self-care (01) ==
PROVIDERS: Emergency Provider Physician Assistant; PCP Family Medicine
DX: S93.324A Dislocation of tarsometatarsal joint of right foot, initial encounter (principal); S92.211A Displaced fracture of cuboid bone of right foot, initial encounter for closed fracture; S92.221A Displaced fracture of lateral cuneiform of right foot, initial encounter for closed fracture; S92.321A Displaced fracture of second metatarsal bone, right foot, initial encounter for closed fracture; S92.331A Displaced fracture of third metatarsal bone, right foot, initial encounter for closed fracture; S92.341A Displaced fracture of fourth metatarsal bone, right foot, initial encounter for closed fracture; W11.XXXA Fall on and from ladder, initial encounter; Z20.822 Contact with and (suspected) exposure to COVID-19; Z03.818 Encounter for observation for suspected exposure to other biological agents ruled out
CPT/HCPCS: 29581; 73562; 87635; 99284; 73610; 73630; 73700; 99283